=== PATIENT | male | born 1980 | race Caucasian/White ===

== ENCOUNTER 2019-05-10 20:43 | Emergency (ER) | payer MEDICAID ==
[~2019-05-10] VITALS: Ht 162.6 cm; Wt 70.3 kg
[2019-05-10 20:46] VITALS: BP 133/79; Ht 162.6 cm; Wt 70.3 kg
== END 2019-05-10 23:23 | disposition home or self-care (01) ==
LOC: ED 20:43
DX: B02.9 Zoster without complications (principal); Z88.0 Allergy status to penicillin